=== PATIENT | male | born 1985 | race African-American/Black ===

== ENCOUNTER 2018-05-02 11:19 | Emergency (ER) | payer OTHER ==
[~2018-05-02] VITALS: Ht 162.5 cm; Wt 61.2 kg
[2018-05-02] MEDS ORDERED: CEPHALEXIN500 M1 PO (13:08)
[2018-05-02] MEDS ORDERED: ANTIBIOTIC28.4 GM T (13:10)
== END 2018-05-02 13:57 | disposition home or self-care (01) ==
LOC: ED 11:19
DX: S01.81XA Laceration without foreign body of other part of head, initial encounter (principal); F17.200 Nicotine dependence, unspecified, uncomplicated; W22.8XXA Striking against or struck by other objects, initial encounter; Y93.89 Activity, other specified; Y92.89 Other specified places as the place of occurrence of the external cause; Y99.8 Other external cause status